=== PATIENT | female | born 1985 | race African-American/Black ===

== ENCOUNTER 2017-01-29 05:45 | Emergency (ER) | payer OTHER, MEDICAID ==
[2017-01-29] MEDS ORDERED: IBUPROFEN 800MG TABLET PO ONE (07:00)
[2017-01-29 08:58] VITALS: BP 118/64
== END 2017-01-29 09:00 | disposition home or self-care (01) ==
LOC: ER 05:45
DX: S83.92XA Sprain of unspecified site of left knee, initial encounter (principal); F12.10 Cannabis abuse, uncomplicated; W50.2XXA Accidental twist by another person, initial encounter; Y93.89 Activity, other specified; Y92.89 Other specified places as the place of occurrence of the external cause; Y99.8 Other external cause status; Z98.890 Other specified postprocedural states; Z91.040 Latex allergy status; Z91.048 Other nonmedicinal substance allergy status
CPT/HCPCS: 73562; 81025; 99284